=== PATIENT | female | born 1975 | race Caucasian/White ===

== ENCOUNTER 2024-05-11 03:23 | Emergency (ER) | payer SELFPAY ==
[2024-05-11 03:24] VITALS: BP 193/122
--- NOTE | 2024-05-11 03:31 | ED.GENMED ---
History of Present Illness
General
Chief Complaint: Abdominal Pain
Time Seen by Provider: 05/11/24 03:31
History of Present Illness
History of Present Illness:
HPI: Abd discomfort described as cramps w/ nonbloody diarrhea. Had BM yesterday. She has had poor p.o. intake over the last 2 days and has not been taking her insulin. She describes the pain as colicky/crampy.
EXAM:
GENERAL: Well appearing but appears very uncomfortable on initial evaluation
HEENT: Moist oral mucosa
CARDIOVASCULAR: No murmurs, normal heart rate, regular rhythm, No chest wall tenderness
PULMONARY: No respiratory distress, breath sounds are clear and equal
ABDOMEN: Soft with no peritoneal signs, very mild diffuse tenderness, surgical scars noted to the anterior abdominal wall
NEUROLOGIC: Excellent strength all extremities, no coordination deficits
PSYCHIATRIC: Appropriate mental status, normal insight and judgement
EXTREMITIES: Nontender, no edema, moves all extremities equally
SKIN: No rash, no lesions
TIME OF INITIAL ENCOUNTER: 3:40 AM
NUMBER AND COMPLEXITY OF PROBLEMS ADDRESSED AT THE ENCOUNTER
� Chronic conditions affecting care: IDDM, high blood pressure
� Acute Exacerbation and/or Progression of Chronic Illness: This is an acute problem
� Differential Diagnosis includes: Possible small bowel obstruction, appendicitis, DKA, pancreatitis, viral syndrome, foodborne illness, diabetic gastroparesis
AMOUNT AND/OR COMPLEXITY OF DATA TO BE REVIEWED AND ANALYZED
� I performed an independent evaluation of and my interpretation is:
EKG:
CT: I personally reviewed CT imaging there appears to be a component of enteritis
X-rays:
Laboratory Studies:. White count of 16.8, bicarb and creatinine normal, hCG negative, LFTs and lipase normal, glucose is 349
Other:
� Review of other/old records: The patient had a cholecystectomy in 2009
� Clinical information was obtained by an independent historian: None needed
� Prescriptions/Medications Considered but not given:
� Further testing considered but not performed:
RISK OF COMPLICATIONS AND/OR MORBIDITY OR MORTALITY OF PATIENT MANAGEMENT
� Social determinants of health affecting care: Lives at home
� Discussion with other providers:
� Escalation of care including admission/observation vs risk of discharge considered: The patient was given IV fluids and Zofran as she describes rather significant amount of vomiting over the last few days. On reassessment at 5
AM, there is been no further vomiting and she overall feels improved. She is well-appearing on reassessment. Will give a dose of Toradol prior to discharge.
Past History
Past History
ED Past Medical History: HTN, Psychiatric and Other (Migraine headaches)
ED Past Surgical History: Cholecystectomy, and Gynecological (D. and C.)
Social History
Tobacco: Non-smoker
Alcohol: Occasional
Personal:
Living: with family
Employment: Employed
Family History
Family History: Hypertension
Phy Exam
Physical Exam
Physical Exam:
See HPI
Course
Orders/Labs/Results
Orders:
Orders
05/11/24 03:33
0.9% Sodium Chloride 1000 ml [Nss] 1,000 ml IV BOLUS
Test Result ONCE
05/11/24 03:47
Ondansetron Injectable [Zofran] 4 mg IV NOW STA
05/11/24 03:54
Complete Blood Count/With Diff Urgent
Comprehensive Metabolic Panel Urgent
HCG, Serum Qualitative Screen Urgent
Lipase Urgent
05/11/24 04:00
CT Abd/pelvis W Iv Cont Urgent
Comment:
Reason For Exam: severe abd pain and vomiting
05/11/24 05:26
Ketorolac [Toradol] 15 mg IV NOW STA
Abnormal Lab Results
05/11/24
03:54
WBC 16.8 H 10^3/uL
(4.8-10.8)
MPV 10.5 H fL
(7.4-10.4)
Abs Immat Gran (auto) 0.1 H 10^3/uL
(0-0.05)
Absolute Neuts (auto) 13.1 H 10^3/uL
(1.4-6.5)
Absolute Monos (auto) 1.9 H 10^3/uL
(0.1-0.6)
Immature Gran % 0.7 H %
(0-0.5)
Neutrophils % 78.0 H %
(42.2-75.2)
Lymphocytes % 9.7 L %
(20.5-51.1)
Monocytes % 11.0 H %
(1.7-9.3)
BUN 18 H mg/dl
(7-17)
Creatinine 0.5 L mg/dL
(0.6-1.0)
Glucose 349 H mg/dl
(70-99)
05/11/24 03:54
05/11/24 03:54
Vital Signs
Initial and Last Documented VS:
Initial Vital Signs
Pulse Resp BP Pulse Ox
99 24 193/122 99
05/11/24 03:24 05/11/24 03:24 05/11/24 03:24 05/11/24 03:24
Last Documented Vital Signs
Temp Pulse Resp BP Pulse Ox
98.5 F 80 16 138/88 98
05/11/24 04:54 05/11/24 04:54 05/11/24 04:54 05/11/24 04:54 05/11/24 04:54
*Critical Care Note
Total Time (30-74mins, 75-104mins- exclusive of procedures): Not Applicable
ED Attending Note
-
Portions of this chart may have been created with voice recognition software.� Occasional wrong word or��sound alike� substitutions may have occurred due to the inherent limitations of voice recognition software.
Discharge Plan
Departure
Patient Disposition: Home (Routine Discharge)
Date of Disposition: 05/11/24
Time of Disposition: 05:25
Patient with high blood pressure during this ER visit?: Yes
Discharge Problem:
Enteritis
Prescriptions:
New
ondansetron HCl 4 mg tablet
4 mg PO Q8H PRN (Reason: nausea and vomiting) Qty: 14 0RF
No Action
Lisinopril
1 tab PO DAILY
Zoloft
1 tab PO DAILY
meclizine 25 MG tablet
25 mg PO Q6HPRN PRN (Reason: dizziness) Qty: 20 0RF
Activity Restrictions/Additional Instructions:
Your white blood cell count was elevated 16.8 and your blood sugar was high at 349. Otherwise your lab values are normal including normal kidney function, liver tests, pancreas test, negative test, normal hemoglobin, normal electrolytes.
The CAT scan showed some degree of enteritis (some fluid in the small intestines but no sign of inflammation or any need for surgery or bowel obstruction).
Interventions
Interventions:
*Risk Screen - Suicide Last Done: 05/11/24 03:24
*General Assessment Last Done: 05/11/24 03:24
*Neglect/Abuse Screening Last Done: 05/11/24 03:24
*ED COVID-19 Vaccine History Last Done: 05/11/24 03:24
AT-Lghmab-Xuycaivbbn Assessment Last Done: 05/11/24 03:59
Discharge Date and Time
Print Language: ESTONIAN
[2024-05-11] MEDS: ZOFRAN 4 MG IV (03:57)
[2024-05-11] MEDS: NSS 1000 IV (03:57)
[2024-05-11 03:59] VITALS: BMI 30.1
[2024-05-11 04:01] LABS: % Basophils 0.2 % (0-2); % Eosinophils 0.4 % (0-6); % Immature Granulocytes 0.7 % (0-0.5); % Lymphocytes 9.7 % (20.5-51.1); Absolute Eosinophils 0.1 10^3/uL (0-0.7); Absolute Immature Granulocytes 0.1 10^3/uL (0-0.05); Absolute Lymphocytes 1.6 10^3/uL (1.2-3.4); Absolute Monocytes 1.9 10^3/uL (0.1-0.6); Absolute Neutrophils 13.1 10^3/uL (1.4-6.5); Hematocrit 42.2 % (37.0-47.0); Hemoglobin 15.1 g/dL (12.0-16.0); Mean Corp Hgb Conc. 35.8 g/dL (33.0-37.0); Mean Corpuscular Hgb 29.6 pg (27.0-31.0); Mean Corpuscular Volume 82.7 fL (81.0-99.0); Mean Platelet Volume 10.5 fL (7.4-10.4); Nucleated Red Blood Cells % 0 %; Platelet Count 307 10^3/uL (130-400); Red Cell Dist. Width 11.8 % (11.5-14.5); White Blood Cell Count 16.8 10^3/uL (4.8-10.8)
[2024-05-11 04:13] LABS: HCG, Serum Qualitative Screen Negative
[2024-05-11 04:42] LABS: ALT (SGPT) 22 U/L (0-35); AST (SGOT) 21 U/L (14-36); Albumin 4.4 g/dl (3.5-5.0); Alkaline Phosphatase 119 U/L (38-126); Blood Urea Nitrogen 18 mg/dl (7-17); Calcium 9.3 mg/dl (8.4-10.2); Carbon Dioxide 22 mmol/L (22-30); Chloride 102 mmol/L (98-107); Estimated Creatinine Clearance > 125 ml/min; Glucose 349 mg/dl (70-99); Lipase 168 U/L (23-300); Potassium 4.3 mmol/L (3.5-5.1); Sodium 138 mmol/L (135-145); Total Bilirubin 0.7 mg/dl (0.2-1.3); eGFR > 60.00
[2024-05-11 04:54] VITALS: BP 138/88
[2024-05-11] MEDS: TORADOL 15 MG IV (05:36)
== END 2024-05-11 05:48 | disposition home or self-care (01) ==
LOC: EMR 03:23
PROVIDERS: EMERGENCY PHYSICIAN Emergency Medicine
DX: K52.9 Noninfective gastroenteritis and colitis, unspecified (principal); I10 Essential (primary) hypertension
CPT/HCPCS: 99285; 96374; 96375; 96361; 74177; 80053; 83690; 84703; 85025; Q9967